=== PATIENT | female | born 1970 | race Caucasian/White ===

== ENCOUNTER 2016-11-25 01:26 | Inpatient (IN) | payer BC, OTHER ==
[~2016-11-25] VITALS: Ht 157.5 cm; Wt 90.7 kg
[2016-11-25] VITALS (7 sets, daily range): BP systolic 126–164; BP diastolic 70–96
[2016-11-25] MEDS ORDERED: HYDROXYZINE PAMOATE 25 MG CAPSULE PO PRN (02:45)
[2016-11-25] MEDS ORDERED: DIAZEPAM 5 MG TABLET PO PRN (02:45)
[2016-11-25] MEDS ORDERED: ACETAMINOPHEN 325 MG TABLET PO PRN (02:45)
[2016-11-25] MEDS ORDERED: MAGNESIUM HYDROXIDE 30 ML LIQUID UDC PO PRN (02:45)
[2016-11-25] MEDS ORDERED: ONDANSETRON ODT 4 MG TAB.RAPDIS SL PRN (02:45)
[2016-11-25] MEDS ORDERED: DIAZEPAM 10 MG TABLET PO PRN ×2 (02:45)
[2016-11-25] MEDS ORDERED: DICYCLOMINE HCL 20 MG TABLET PO PRN (02:45)
[2016-11-25] MEDS ORDERED: CLONIDINE HCL 0.1 MG TABLET PO PRN (02:45)
[2016-11-25] MEDS ORDERED: MAG HYDROX/AL HYDROX/SIMETH 30 ML LIQUID UDC PO PRN (02:45)
[2016-11-25] MEDS ORDERED: IBUPROFEN 400 MG TABLET PO PRN (02:45)
[2016-11-25] MEDS ORDERED: LOPERAMIDE HCL 2 MG CAPSULE PO PRN ×2 (02:45)
[2016-11-25] MEDS ORDERED: diphenhydrAMINE 50 MG CAPSULE PO PRN (02:45)
[2016-11-25] MEDS ORDERED: BUPRENORPHINE HCL 2 MG TAB.SUBL SL PRN (02:45)
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
[2016-11-25 03:44] LABS: BASOPHILS # (AUTO) 0.1 K/uL (0.0-8.0); BASOPHILS % (AUTO) 1.2 % (0.0-2.0); EOSINOPHILS % (AUTO) 0.7 % (0.0-7.0); HEMATOCRIT 44.1 % (31.2-41.9); HEMOGLOBIN 14.4 g/dL (10.9-14.3); LYMPHOCYTES # (AUTO) 1.7 K/uL (20.0-40.0); LYMPHOCYTES % (AUTO) 40.3 % (20.5-51.5); MEAN CORPUSCULAR HEMOGLOBIN 29.4 uug (24.7-32.8); MEAN CORPUSCULAR HGB CONC 33 g/dL (32.3-35.6); MEAN CORPUSCULAR VOLUME 89.6 fL (75.5-95.3); MONOCYTES # (AUTO) 0.4 K/uL (2.0-10.0); NEUTROPHILS % (AUTO) 48.8 % (38.5-71.5); PLATELET COUNT (AUTO) 257 K/uL (179-408); RED BLOOD CELL COUNT(AUTO) 4.92 MIL/uL (3.63-4.92); WHITE BLOOD COUNT (AUTO) 4.2 K/uL (3.8-11.8)
[2016-11-25 03:52] LABS: *URINE HCG, QUAL NEGATIVE (NEGATIVE)
[2016-11-25 04:00] LABS: ALANINE AMINOTRANSFERASE 48 U/L (14-59); ALBUMIN 4.3 g/dL (3.4-5.0); ALKALINE PHOSPHATASE 94 U/L (50-136); AMYLASE 25 U/L (25-115); ASPARTATE AMINOTRANSFERASE 40 U/L (15-37); BILIRUBIN,TOTAL 0.5 mg/dL (0.2-1.0); CARBON DIOXIDE 30 mmol/L (21-32); CHLORIDE 104 mmol/L (98-107); CREATININE 0.9 mg/dL (0.6-1.3); GFR 67 mL/min (>60); GLUCOSE 76 mg/dL (74-106); LIPASE 110 U/L (73-393); MAGNESIUM 2.1 mg/dL (1.8-2.4); SODIUM SERUM 141 mmol/L (136-145); TOTAL PROTEIN, SERUM 8.3 g/dL (6.4-8.2); UREA NITROGEN, BLOOD 17 mg/dL (7-18)
[2016-11-25 04:02] LABS: ETHANOL < 3 MG/DL (0-0)
[2016-11-25 04:03] LABS: *AMPHETAMINE, URINE NEGATIVE (NEGATIVE); *BARBITURATE, URINE NEGATIVE (NEGATIVE); *CANNABINOID, URINE POSITIVE (NEGATIVE); *COCCAINE, URINE NEGATIVE (NEGATIVE); *OPIATE, URINE POSITIVE (NEGATIVE); *PHENCYCLIDINE SCREEN,URINE NEGATIVE (NEGATIVE)
[2016-11-25 04:08] LABS: THYROID STIMULATING HORMONE 2.155 mIU/mL (0.358-3.740)
[2016-11-25 04:19] LABS: HIV-1 p24 ANTIGEN NON REACTIVE (NONREACTIVE); HIV-1/2 ANTIBODY NON REACTIVE (NONREACTIVE)
[2016-11-25] MEDS ORDERED: GABA300C PO (04:25)
[2016-11-25] MEDS ORDERED: CLIN-63 PO (04:35)
[2016-11-25] MEDS ORDERED: SUMA100T16 PO (04:35)
[2016-11-25] MEDS ORDERED: LEVO75TA7 PO (04:35)
[2016-11-25] MEDS ORDERED: NA P133E4 RC (04:37)
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
--- NOTE | 2016-11-25 07:34 | NUR ---
START OF SHIFT NOTE: Received report from operation shift supervisor nurse. Patient is a 46-year-old female, admitted 11-25-16 for Opioid and Benzodiazapine Dependence. Pt is currently on prn's only. Pt is awake, alert and oriented X4. Color good, skin warm and dry. Respirations even and unlabored. Resting in bed. Safety precautions observed. Call light within reach. Will continue to monitor.
[2016-11-25] MEDS ORDERED: MULTIVITAMINS,THERAPEUTIC TABLET PO SCH (09:00)
[2016-11-25] MEDS: MULTIVITAMINS,THERAPEUTIC TABLET PO SCH (09:45)
[2016-11-25] MEDS: METHOCARBAMOL 750 MG TABLET PO PRN (10:28)
--- NOTE | 2016-11-25 10:31 | NUR ---
VSS CIWA 17 COWS 11. Pt c/o severe anxiety and agitation along with body aches and "a migraine." Valium 10mg po prn Robaxin 750 mg po prn and Motrin 400 mg po prn administered.
[2016-11-25] MEDS ORDERED: ASPIRIN/ACETAMINOPHEN/CAFFEINE TABLET PO PRN (10:45)
[2016-11-25] MEDS ORDERED: BUPRENORPHINE HCL 2 MG TAB.SUBL SL ONE (10:45)
[2016-11-25] MEDS ORDERED: SUMATRIPTAN SUCCINATE 50 MG TABLET PO ONE (10:45)
--- NOTE | 2016-11-25 11:14 | NUR ---
Imitrex 50mg po prn given for migraine. Subutex 4mg X1 sl administered.
--- NOTE | 2016-11-25 11:15 | NUR ---
Pt states less anxious and agitated after Valium prn. Muscle aches and headache improved after Motrin and Robaxin prn.
[2016-11-25] MEDS: DIAZEPAM 10 MG TABLET PO SCH ×3 (12:15→21:17)
[2016-11-25] MEDS: BUPRENORPHINE HCL 2 MG TAB.SUBL SL SCH ×3 (12:15→21:18)
--- NOTE | 2016-11-25 12:15 | NUR ---
Pt states migraine gone after Imitrex prn
--- NOTE | 2016-11-25 13:00 | NUR ---
VSS COWS 7 CIWA 12. C/O muscle aches, anxiety and agitation.
[2016-11-25] MEDS: GABAPENTIN 300 MG CAPSULE PO SCH ×2 (14:57→21:17)
[2016-11-25] MEDS ORDERED: FLEET ENEMA 133 ML BOTTLE RC PRN (16:15)
--- NOTE | 2016-11-25 18:37 | NUR ---
END OF SHIFT NOTES: Report given to doctor of veterinary medicine nurse. Patient is a 46-year-old female, admitted 11-25-16 for Opioid and Benzodiazapine Dependence. Pt placed on a 5 day Valium and 5 day Subutex taper. Tolerating well. Pt is awake, alert and oriented X4. Color good, skin warm and dry. Respirations even and unlabored. Vital signs have remained stable throughout shift . Last CIWA 10 COWS 7 @ 1700. Imitrex 50mg po prn given for migraine. Valium 10mg po prn Robaxin 750 mg po prn and Motrin 400 mg po prn administered @ 1030. Imitrex 50mg po prn given for migraine and Subutex 4mg X1 sl administered @ 1115. Resting in bed. Safety precautions observed. Call light within reach.
--- NOTE | 2016-11-25 19:05 | NUR ---
Start of Shift Patient Received. Patient is in group activities participating in group meeting. Patient is a 46-year-old female, admitted for Opioid and Benzodiazepine Dependence, admitted under the care of Dr. Fowler. Patient was seen and examined by MD with new orders to start on 5 Day Subutex and 5 day Valium tapers which start at 1300. Patient verbalizes no known allergies, wishes to be DNR, following a regular diet, skin is intact, and placed on fall precautions. Patient reports past medical history of Major depressive disorder, Anxiety disorder, unspecified, Fibromyalgia, Complex regional pain syndrome, Chronic low back pain with sciatica, Osteoarthritis, Migraine headache, Hypothyroidism, History of suicide attempt. Patient verbalizes no suicidal ideations. VTE Score of 3 and is compliant with SCD pumps. At 1600 patient is noted with a COWS of 7 and CIWA of 10. Patient is compliant with plan of care, is active in participating in group activities, and meetings. All needs attended to promptly. Will continue plan of care as ordered.
[2016-11-25] MEDS: NAPROXEN 500 MG TABLET PO SCH (21:17)
--- NOTE | 2016-11-25 21:20 | NUR ---
PRN Medication Administration Patient noted with increased agitation and anxiety. Patient verbalized "My laundry was washed and they washed a shirt that should not have been washed." Patients vitals rendered and noted as 164/96 and pulse of 90. Patient given PRN Clonidine with routine medications and patient able to tolerate well. Will continue to monitor for effectiveness of medication
--- NOTE | 2016-11-25 22:30 | NUR ---
PRN Medication Reassessment Patients vitals rendered and noted as 126/79 and pulse of 74. PRN Clonidine 0.1mg noted to be effective. Will continue to monitor.
[2016-11-26] VITALS (8 sets, daily range): BP systolic 97–125; BP diastolic 53–73
[2016-11-26] MEDS: TRAZODONE 100 MG TABLET PO PRN ×2 (01:37→20:49)
--- NOTE | 2016-11-26 01:40 | NUR ---
PRN Medication Administration Patient noted awake and verbalizing increased anxiety and inability of falling back asleep. Patient states "I was awakened for vitals and I cant fall back to sleep. My anxiety is really high." PRN Valium 5mg and Trazodone administered. CIWA noted 6. Will continue to monitor for effectiveness of medication.
--- NOTE | 2016-11-26 02:30 | NUR ---
PRN Medication Reassessment Patient is in bed sleeping. But easily arousable to verbal stimuli. Breathing even and non labored. No signs of pain or discomfort noted. Patient shows reduced signs and symptoms of withdrawal. PRN Valium noted to be effective. CIWA noted 1 and COWS noted 1. Patient was able to fall back asleep with no complications. Will continue to monitor.
[2016-11-26] MEDS: LEVOTHYROXINE SODIUM 75 MCG TABLET PO SCH (06:45)
--- NOTE | 2016-11-26 07:28 | NUR ---
START OF SHIFT NOTE: Received report from in room dining server nurse. Patient is a 46-year-old female, admitted 11-25-16 for Opioid and Benzodiazapine Dependence. Pt is on a 5 day Valium and 5 day Subutex taper. Tolerating well. Pt is awake, alert and oriented X4. Color good, skin warm and dry. Respirations even and unlabored. Resting in bed. Safety precautions observed. Call light within reach. Will continue to monitor.
--- NOTE | 2016-11-26 07:29 | NUR ---
START OF SHIFT NOTE: Received report from overnight cashier nurse. Patient is a 46-year-old female, admitted 11-25-16 for Opioid and Benzodiazapine Dependence. Pt is on a 5 day Valium and 5 day Subutex taper. Tolerating well. Pt is awake, alert and oriented X4. Color good, skin warm and dry. Respirations even and unlabored. Resting in bed. Safety precautions observed. Call light within reach. Will continue to monitor.
[2016-11-26] MEDS: NAPROXEN 500 MG TABLET PO SCH ×2 (08:19→20:49)
[2016-11-26] MEDS: MULTIVITAMINS,THERAPEUTIC TABLET PO SCH (08:19)
[2016-11-26] MEDS: FAMOTIDINE 20 MG TABLET PO SCH (08:19)
[2016-11-26] MEDS: DIAZEPAM 10 MG TABLET PO SCH ×3 (08:19→20:49)
[2016-11-26] MEDS: GABAPENTIN 300 MG CAPSULE PO SCH ×2 (08:20→14:39)
[2016-11-26] MEDS: LIDOCAINE 5% PATCH TD SCH (08:20)
[2016-11-26] MEDS: BUPRENORPHINE HCL 2 MG TAB.SUBL SL SCH ×3 (08:20→20:49)
[2016-11-26] MEDS ORDERED: TUBERCULIN,PURIF.PROT.DERIV. 5 TU/0.1 ML TEST ID ONE (09:00)
--- NOTE | 2016-11-26 10:02 | NUR ---
VSS COWS 4 CIWA 4. Pt with muscle aches, anxiety and headache.
--- NOTE | 2016-11-26 12:20 | NUR ---
Toradol 30mg IM prn given for chronic back pain
[2016-11-26] MEDS: DOCUSATE SODIUM 250 MG CAPSULE PO SCH (12:38)
[2016-11-26] MEDS: KETOROLAC TROMETHAMINE 30 MG INJ IM PRN (12:42)
--- NOTE | 2016-11-26 12:47 | NUR ---
Fleets enema prn and Vistaril 50mg po prn given for anxiety.
--- NOTE | 2016-11-26 13:43 | NUR ---
Pt states pain improved after Toradol 30mg IM prn and anxiety has lessened after Vistaril 50mg po prn. Also had ggod results from Fleets enema prn.
--- NOTE | 2016-11-26 14:41 | NUR ---
VSS COWS 4 CIWA 4 c/o muscle aches and anxiety
--- NOTE | 2016-11-26 18:31 | NUR ---
END OF SHIFT NOTES: Report given to vertical boring mill operator nurse. Patient is a 46-year-old female, admitted 11-25-16 for Opioid and Benzodiazapine Dependence. Pt placed on a 5 day Valium and 5 day Subutex taper. Tolerating well. Pt is awake, alert and oriented X4. Color good, skin warm and dry. Respirations even and unlabored. Vital signs have remained stable throughout shift . Last CIWA 4 COWS 4 @ 1500. Toradol 30mg IM prn given for chronic back pain @ 1220 and Fleets enema prn and Vistaril 50mg po prn given for anxiety @ 1250. Resting in bed. Safety precautions observed. Call light within reach.
--- NOTE | 2016-11-26 19:05 | NUR ---
Start of Shift Patient Received. Patient is in group activities participating in group meeting. Patient is a 46-year-old female, admitted for Opioid and Benzodiazepine Dependence, admitted under the care of Dr. Fowler. Patient is on a 5 Day Subutex and 5 day Valium tapers. Patient verbalizes no known allergies, wishes to be DNR, following a regular diet, skin is intact, and placed on fall precautions. Patient reports past medical history of Major depressive disorder, Anxiety disorder, unspecified, Fibromyalgia, Complex regional pain syndrome, Chronic low back pain with sciatica, Osteoarthritis, Migraine headache, Hypothyroidism, History of suicide attempt. Patient verbalizes no suicidal ideations. VTE Score of 3 and is compliant with SCD pumps. Patient was given PRN Toradol, Vistaril, and Enema. At 1600 patient is noted with a COWS of 4 and CIWA of 4. Patient is compliant with plan of care, is active in participating in group activities, and meetings. All needs attended to promptly. Will continue plan of care as ordered.
--- NOTE | 2016-11-26 20:50 | NUR ---
PRN Medication Administration Patient is verbalizing inability of falling asleep. PRN Trazodone administered with routine medications. All needs attended to promptly. Will continue to monitor for effectiveness.
[2016-11-26] MEDS ORDERED: GABAPENTIN 300 MG CAPSULE PO SCH (21:00)
[2016-11-27 00:47] VITALS: BP 95/58
[2016-11-27 04:09] VITALS: BP 103/64
[2016-11-27] MEDS: LEVOTHYROXINE SODIUM 75 MCG TABLET PO SCH (06:45)
--- NOTE | 2016-11-27 07:03 | NUR ---
End of Shift Patient is in bed sleeping. Breathing even and non labored. No signs of pain or discomfort noted. Patient is a 46-year-old female, admitted for Opioid and Benzodiazapine Dependence, admitted under the care of Dr. Fowler. Patient is currently receiving a 5 day Valium and 5 Day Subutex taper. Patient verbalizes no known allergies, wishes to be DNR, regular diet, skin is intact, and placed on fall precautions. Patient reports past medical history of Major depressive disorder, Anxiety disorder, unspecified, Fibromyalgia, Complex regional pain syndrome, Chronic low back pain with sciatica, Osteoarthritis, Migraine headache, Hypothyroidism, History of suicide attempt. PRN Trazodone administered and noted to be effective. Patient slept 7 hours. Patient placed on SCD pumps due to a VTE score of 3. All needs attended to promptly. Will endorse to continue plan of care as ordered.
[2016-11-27 08:00] VITALS: BP 114/78
--- NOTE | 2016-11-27 08:00 | NUR ---
START OF SHIFT: RECEIVED PT A/O X 4. SHE C/O MUSCLE ACHES 5/10 ON PAIN SCALE , ANXIETY AND STATES SHE FEELS "SHAKY". VALIUM/SUBUTEX TAPER IN PROGRESS TO MANAGE S/S OF W/D. COWS 4 CIWA 2. SHE ALSO C/O CONSTIPATION X 1 DAY. SCHEDULED COLACE GIVEN AND PRN MIRALAX. ENCOURAGED INCREASED FLUIDS. SHE STATES SHE IS ATTENDING GROUPS. WILL CONTINUE TO MONITOR AND PROVIDE SAFE AND SUPPORTIVE ENVIRONMENT.
[2016-11-27] MEDS: DIAZEPAM 5 MG TABLET PO SCH ×4 (08:15→20:42)
[2016-11-27] MEDS: DOCUSATE SODIUM 250 MG CAPSULE PO SCH (08:15)
[2016-11-27] MEDS: MULTIVITAMINS,THERAPEUTIC TABLET PO SCH (08:15)
[2016-11-27] MEDS: LIDOCAINE 5% PATCH TD SCH (08:16)
[2016-11-27] MEDS: FAMOTIDINE 20 MG TABLET PO SCH (08:16)
[2016-11-27] MEDS: GABAPENTIN 300 MG CAPSULE PO SCH ×3 (08:16→20:40)
[2016-11-27] MEDS: NAPROXEN 500 MG TABLET PO SCH ×2 (08:16→20:42)
[2016-11-27] MEDS: MIRALAX 17 GM POWD.PACK PO PRN (08:17)
[2016-11-27] MEDS ORDERED: BUPRENORPHINE HCL 2 MG TAB.SUBL SL SCH (09:00)
--- NOTE | 2016-11-27 10:27 | NUR ---
Therapist encouraged client to attend group.
[2016-11-27 12:00] VITALS: BP 111/58
[2016-11-27] MEDS: METHYL SALICYLATE/MENTHOL CREAM 28 GM TUBE TOP PRN (12:02)
[2016-11-27] MEDS: KETOROLAC TROMETHAMINE 30 MG INJ IM PRN (12:04)
--- NOTE | 2016-11-27 12:20 | NUR ---
PRN BENGAY AND PRN TORADOL IM ADMINISTERED FOR REPORTED PAIN 6/10 IN FEET,BACK AND LEGS. WILL MONITOR EFFECTIVENESS OF PRN MEDS.
[2016-11-27] MEDS ORDERED: ACETAMINOPHEN 325 MG TABLET PO PRN (12:45)
--- NOTE | 2016-11-27 13:00 | NUR ---
PT STATES PAIN IS 2/10 AND THE PRNS WERE EFFECTIVE. WILL CONTINUE TO MONITOR.
[2016-11-27 16:00] VITALS: BP 129/71
--- NOTE | 2016-11-27 16:15 | NUR ---
LATE ADMINISTRATION FOR 1500 MEDS. PT WAS SLEEPING AND THEN IN AFTERNOON THERAPY GROUP.
[2016-11-27] MEDS: BACLOFEN 10 MG TABLET PO SCH ×2 (16:23→20:42)
[2016-11-27] MEDS: BUPRENORPHINE HCL 2 MG TAB.SUBL SL SCH ×2 (16:24→20:43)
--- NOTE | 2016-11-27 18:28 | NUR ---
END OF SHIFT: PT CONTINUES ON VALIUM/SUBUTEX TAPER. LAST COWS 3 CIWA 1.SHE REPORTED SOME ANXIETY ,CONSTIPATION AND GENERALIZED BODY ACHES THIS AM. PRN MIRALAX GIVEN AND EFFECTIVE. SHE HAD 1 BM. SHE STATED THE DETOX MEDS WERE EFFECTIVE. LATER SHE C/O PAIN TO BACK ,FEET AND LEGS. PRN TORADOL AND PRN BENGAY GIVEN AND EFFECTIVE. SHE ATTENDED GROUPS AND INTERACTED WITH PEERS. SHE WAS COMPLIANT WITH INCREASED FLUIDS. SHE IS COMPLIANT WITH TREATMENT PLAN. [facility]
[2016-11-27 20:00] VITALS: BP 115/74
--- NOTE | 2016-11-27 20:37 | NUR ---
START OF SHIFT NOTE Pt is a 46 y/o female admitted for Hydrocodone, Xanax, Ambein, and Ms Contin dependence and use. Pt has NKA but reported a PMH of hypothyroidism, fibromyalgia, complex regional pain syndrome, chronic fatigue syndrome, arthritis, anxiety, pinched nerves (L5 -S1), surgery of the right foot, and scoliosis. Per day shift nurse pt was placed on a 5 day Valium and Subutex taper and is tolerating medication well, with no signs of s/e or a/r reported. Per day shift nurse pt received Toradol IM PRN, Bengay, and Miralax (effective). Last COW:3 and CIWA: 1(1600). At this time pt is in her room watching television. Pt stated " I'm doing fine. I just have this migraine. Can I have some Imitrex with my medication?" Pt is encouraged to notify staff of any changes in condition or of any further concerns. Pt verbalized an understanding. All safety measures in place. Will continue to monitor.
[2016-11-27] MEDS: ACETAMINOPHEN 325 MG TABLET PO SCH (20:41)
[2016-11-27] MEDS: CLONIDINE HCL 0.1 MG TABLET PO SCH (20:42)
[2016-11-27] MEDS: SUMATRIPTAN SUCCINATE 50 MG TABLET PO PRN (20:43)
--- NOTE | 2016-11-27 20:43 | NUR ---
IMITREX PRN ADMINISTRATION Pt stated " I'm having a migraine. About a 4/10 right now. Can I have some Imitrex?" Imitrex 50 mg PO PRN was given. Pt was encouraged to notify staff of any changes in condition or of any further concerns. Pt verbalized an understanding. All safety measures in place. Will monitor effectiveness.
--- NOTE | 2016-11-27 21:43 | NUR ---
IMITREX PRN REASSESSMENT Pt stated " My migraine is gone." PRN effective. Pt was encouraged to notify staff of any changes in condition or of any concerns. Pt verbalized an understanding. All safety measures in place. Will continue to monitor.
--- NOTE | 2016-11-28 00:13 | NUR ---
CIWA, COW, AND VITALS REFUSED Pt refused to be assessed and have vitals taken at this time. Pt was encouraged x 3 with risks and benefits explained, but the pt still refused. All safety measures in place. Will continue to monitor. Addendum: 11/28/16 at 0045 by FELICIANO RODRIGUEZ LVN Amended: Links added.
[2016-11-28 03:05] LABS: HEPATITIS B CORE AB, IgM Negative (Negative); HEPATITIS B SURFACE AG Negative (Negative)
--- NOTE | 2016-11-28 04:00 | NUR ---
COW, CIWA, AND VITALS REFUSED Pt refused to be assessed and have vitals taken at this time. Pt was encouraged x 3 with risks and benefits explained, but the pt still refused. All safety measures in place. Will continue to monitor. Addendum: 11/28/16 at 0639 by FELICIANO RODRIGUEZ LVN Amended: Links added.
--- NOTE | 2016-11-28 07:10 | NUR ---
END OF SHIFT NOTE Pt is a 46 y/o female admitted for Hydrocodone, Xanax, Ambien, and Ms Contin dependence and use. Pt has NKA but reported a PMH of hypothyroidism, fibromyalgia, complex regional pain syndrome, chronic fatigue syndrome, arthritis, anxiety, pinched nerves (L5 -S1), surgery of the right foot, and scoliosis. Pt continues on a 5 day Valium and Subutex taper and is tolerating medication well, with no signs of s/e or a/r reported. Pt received Imitrex 50 mg PO PRN during the shift. Last COW:3 and CIWA: 4(1999). Pt slept for a total of 8 hours. All safety measures in place. Endorsed to the oncoming nurse.
[2016-11-28] MEDS: LEVOTHYROXINE SODIUM 75 MCG TABLET PO SCH (07:21)
[2016-11-28 08:00] VITALS: BP 102/68
--- NOTE | 2016-11-28 08:05 | NUR ---
START OF SHIFT: RECEIVED PT A/O X 4. SHE PRESENTS WITH ANXIOUS MOOD AND CONGRUENT AFFECT. VALIUM/SUBUTEX TAPER IN PROGRESS TO MANAGE S/S OF W/D. COWS 3 CIWA 2. SHE REPORTS ANXIETY AND SOME ACHING TO LEGS AND BACK 4/10 ON PAIN SCALE. BACLOFEN,TYLENOL ,NAPROSYN AND LIDOCAINE PATCH GIVEN SCHEDULED PER MD. SHE REPORTS SHE IS ATTENDING GROUPS AND ACTIVITIES. SHE STATES SHE SLEPT OK BUT WOKE UP IN THE MIDDLE OF THE NIGHT AND IT WAS DIFFICULT TO GET BACK TO SLEEP. ENCOURAGED INCREASED FLUIDS TO ASSIST IN FACILITATING DETOX PROCESS. WILL CONTINUE TO PROVIDE SAFE AND SUPPORTIVE ENVIRONMENT.
[2016-11-28] MEDS: BACLOFEN 10 MG TABLET PO SCH ×3 (09:15→21:21)
[2016-11-28] MEDS: GABAPENTIN 300 MG CAPSULE PO SCH ×2 (09:16→14:57)
[2016-11-28] MEDS: DOCUSATE SODIUM 250 MG CAPSULE PO SCH (09:16)
[2016-11-28] MEDS: CLONIDINE HCL 0.1 MG TABLET PO SCH (09:16)
[2016-11-28] MEDS: ACETAMINOPHEN 325 MG TABLET PO SCH ×3 (09:16→21:22)
[2016-11-28] MEDS: NAPROXEN 500 MG TABLET PO SCH ×2 (09:17→21:20)
[2016-11-28] MEDS: DIAZEPAM 5 MG TABLET PO SCH ×3 (09:17→21:19)
[2016-11-28] MEDS: MULTIVITAMINS,THERAPEUTIC TABLET PO SCH (09:17)
[2016-11-28] MEDS: FAMOTIDINE 20 MG TABLET PO SCH (09:17)
[2016-11-28] MEDS: LIDOCAINE 5% PATCH TD SCH (09:18)
[2016-11-28] MEDS: BUPRENORPHINE HCL 2 MG TAB.SUBL SL SCH ×3 (09:18→21:22)
[2016-11-28] MEDS: SUMATRIPTAN SUCCINATE 50 MG TABLET PO PRN (09:59)
[2016-11-28 12:00] VITALS: BP 102/58
[2016-11-28] MEDS: METHYL SALICYLATE/MENTHOL CREAM 28 GM TUBE TOP PRN (12:46)
--- NOTE | 2016-11-28 12:54 | NUR ---
PRN VICTOR MANUEL-TORRES GIVEN TOPICALLY FOR REPORTED ACHEY LEGS. WILL MONITOR EFFECTIVENESS.
--- NOTE | 2016-11-28 13:30 | NUR ---
[facility] WAS EFFECTIVE.
[2016-11-28] MEDS: KETOROLAC TROMETHAMINE 30 MG INJ IM PRN (15:00)
--- NOTE | 2016-11-28 15:05 | NUR ---
PRN TORADOL IM GIVEN FOR REPORTED GENERALIZED PAIN 6/10 TO BACK AND LEGS. WILL MONITOR EFFECTIVENESS OF PRN.
--- NOTE | 2016-11-28 15:40 | NUR ---
PT STATES THE TORADOL WAS EFFECTIVE. PAIN 2/10 ON PAIN SCALE.
[2016-11-28 16:00] VITALS: BP 110/56
[2016-11-28] MEDS ORDERED: BISACODYL 5 MG TABLET.DR PO PRN (16:00)
[2016-11-28] MEDS ORDERED: BISACODYL 10 MG SUPP.RECT RC PRN (16:00)
--- NOTE | 2016-11-28 18:38 | NUR ---
END OF SHIFT: PT CONTINUES ON VALIUM/SUBUTEX TAPER. LAST COWS 2 CIWA 1.SHE REPORTED SOME ANXIETY , AND BODY ACHES SCHEDULED AM MEDS GIVEN ORDERED. SHE STATED THE DETOX MEDS WERE EFFECTIVE.SHE COMPLAINED THAT SHE FELT A MIGRAINE COMING ON IN [place] PART OF SHIFT. PRN IMITREX GIVEN AND EFFECTIVE. LATER SHE AN ACHING BACK AND LEGS. PRN TORADOL AND PRN BENGAY GIVEN AND EFFECTIVE. SHE ATTENDED GROUPS AND INTERACTED WITH PEERS. SHE IS COMPLIANT WITH TREATMENT PLAN. [facility]
[2016-11-28 20:00] VITALS: BP 112/61
--- NOTE | 2016-11-28 20:30 | NUR ---
START OF SHIFT NOTE Pt is a 46 y/o female admitted for Hydrocodone, Xanax, Ambien, and Ms Contin dependence and use. Pt has NKA but reported a PMH of hypothyroidism, fibromyalgia, complex regional pain syndrome, chronic fatigue syndrome, arthritis, anxiety, pinched nerves (L5 -S1), surgery of the right foot, and scoliosis. Per day shift nurse pt continues on a 5 day Valium and Subutex taper and is tolerating medication well, with no signs of s/e or a/r reported. Per day shift nurse pt received Toradol IM PRN, Bengay, and Imitrex PRNS during the day shift . Last COW:2 and CIWA: 1 (1600). At this time pt is in her room watching television. Pt stated " I'm doing fine. I'm ready for medication when you are." Pt denies any pain/discomfort at this time. Pt is encouraged to notify staff of any changes in condition or of any further concerns. Pt verbalized an understanding. All safety measures in place. Will continue to monitor.
[2016-11-28] MEDS ORDERED: GABAPENTIN 300 MG CAPSULE PO SCH (21:00)
[2016-11-28] MEDS: DICYCLOMINE HCL 20 MG TABLET PO SCH (21:22)
[2016-11-28] MEDS: PROPRANOLOL HCL 20 MG TABLET PO SCH (21:25)
--- NOTE | 2016-11-29 | NUR ---
TERRENCE, CIWA, AND VITALS REFUSED Pt refused to be assessed and have vitals taken at this time. Pt was encouraged x 3 with risks and benefits explained, but pt still declined. All safety measures in place. Will continue to monitor. Addendum: 11/29/16 at 0620 by FELICIANO RODRIGUEZ LVN Amended: Links added.
[2016-11-29 04:00] VITALS: BP 99/53
--- NOTE | 2016-11-29 04:00 | NUR ---
COW, CIWA, AND VITALS REFUSED Pt refused to be assessed and have vitals taken at this time. Pt was encouraged x 3 with risks and benefits explained, but pt still declined. All safety measures in place. Will continue to monitor. Addendum: 11/29/16 at 0624 by FELICIANO RODRIGUEZ LVN Amended: Links added. Addendum: 11/29/16 at 0627 by FELICIANO RODRIGUEZ LVN INCORRECT CLIENT
--- NOTE | 2016-11-29 07:00 | NUR ---
END OF SHIFT NOTE Pt is a 46 y/o female admitted for Hydrocodone, Xanax, Ambien, and Ms Contin dependence and use. Pt has NKA but reported a PMH of hypothyroidism, fibromyalgia, complex regional pain syndrome, chronic fatigue syndrome, arthritis, anxiety, pinched nerves (L5 -S1), surgery of the right foot, and scoliosis. Pt continues on a 5 day Valium and Subutex taper and is tolerating medication well, with no signs of s/e or a/r reported. Pt didn't receive any PRNS during the shift. Last COW:0 and CIWA:0 (0400). Pt slept for a total of 9 hours. All safety measures in place. Endorsed to the oncoming nurse.
[2016-11-29] MEDS: LEVOTHYROXINE SODIUM 75 MCG TABLET PO SCH (07:17)
[2016-11-29 08:00] VITALS: BP 115/83
--- NOTE | 2016-11-29 08:02 | NUR ---
START OF SHIFT: RECEIVED PT A/O X 4. SHE C/O LEG AND BACK PAIN 6/10 AND MILD ANXIETY. SHE STATES SHE IS ANXIOUS BECAUSE SHE DOES NOT KNOW WHERE SHE IS GOING FROM HERE. REDIRECTED PT TO GERIATRIC PERSONAL CARE AIDE. VALIUM/SUBUTEX TAPER IN PROGRESS. COWS 3 CIWA 1. SCHEDULED PAIN MEDS AND DETOX MEDS ADMINISTERED ORDERED. PT REPORTS SHE IS ATTENDING GROUPS AND ACTIVITIES AND EXPRESSED ENTHUSIASM TOWARD RECOVERY. WILL CONTINUE TO PROVIDE SAFE AND SUPPORTIVE ENVIRONMENT.
[2016-11-29] MEDS: MULTIVITAMINS,THERAPEUTIC TABLET PO SCH (09:16)
[2016-11-29] MEDS: NAPROXEN 500 MG TABLET PO SCH ×2 (09:17→21:00)
[2016-11-29] MEDS: DOCUSATE SODIUM 250 MG CAPSULE PO SCH (09:17)
[2016-11-29] MEDS: DIAZEPAM 5 MG TABLET PO SCH ×2 (09:17→21:00)
[2016-11-29] MEDS: DICYCLOMINE HCL 20 MG TABLET PO SCH ×3 (09:17→20:59)
[2016-11-29] MEDS: FAMOTIDINE 20 MG TABLET PO SCH (09:18)
[2016-11-29] MEDS: ACETAMINOPHEN 325 MG TABLET PO SCH ×3 (09:18→20:59)
[2016-11-29] MEDS: GABAPENTIN 300 MG CAPSULE PO SCH ×3 (09:18→21:02)
[2016-11-29] MEDS: BACLOFEN 10 MG TABLET PO SCH ×3 (09:18→21:00)
[2016-11-29] MEDS: BUPRENORPHINE HCL 2 MG TAB.SUBL SL SCH ×2 (09:19→21:04)
[2016-11-29] MEDS: LIDOCAINE 5% PATCH TD SCH (09:19)
[2016-11-29] MEDS: PROPRANOLOL HCL 20 MG TABLET PO SCH ×3 (09:27→21:03)
[2016-11-29] MEDS: SUMATRIPTAN SUCCINATE 50 MG TABLET PO PRN ×2 (10:04→18:43)
--- NOTE | 2016-11-29 10:08 | NUR ---
PT REPORTS SHE FEELS A MIGRAINE COMING ON AND REQUESTS IMITREX.PRN IMITREX GIVEN. SHE STATES SHE CANT RATE THE PAIN ON SCALE BECAUSE IT HASN'T STARTED YET.
--- NOTE | 2016-11-29 11:00 | NUR ---
PT STATES IMITREX WAS EFFECTIVE.
[2016-11-29 12:00] VITALS: BP 123/84
[2016-11-29] MEDS: KETOROLAC TROMETHAMINE 30 MG INJ IM PRN ×2 (13:34→23:01)
--- NOTE | 2016-11-29 13:40 | NUR ---
PT REPORTS BACK AND LEG PAIN 7/10 ON PAIN SCALE. PRN TORADOL IM GIVEN ORDERED. WILL MONITOR EFFECTIVENESS.
--- NOTE | 2016-11-29 14:08 | NUR ---
PT STATES THE TORADOL HELPED. PAIN 11/06
[2016-11-29 16:00] VITALS: BP 143/74
--- NOTE | 2016-11-29 18:35 | NUR ---
END OF SHIFT: PT CONTINUES ON VALIUM/SUBUTEX TAPER. LAST COWS 1 CIWA 0.SHE REPORTED SOME PAIN IN HER BACK AND LEGS THIS AM SCHEDULED AM PAIN MEDS GIVEN ORDERED. SHE STATES HER S/S OF W/D HAVE LESSENED AND SHE FEELS BETTER EVERYDAY.SHE STATED THE DETOX MEDS WERE EFFECTIVE.IMITREX PRN GIVEN AND EFFECTIVE FOR POTENTIAL MIGRAINE. LATER TORADOL PRN GIVEN AND EFFECTIVE. SHE ATTENDED GROUPS AND INTERACTED WITH PEERS. SHE IS C/O A MIGRAINE STARTING AT END OF SHIFT. WILL ADMINISTER IMITREX PRN PER PT REQUEST.SHE IS COMPLIANT WITH MEDS. WILL PASS SHIFT REPORT TO [facility] NIGHT NURSE.
[2016-11-29 20:00] VITALS: BP 132/82
--- NOTE | 2016-11-29 20:30 | NUR ---
START OF SHIFT NOTE Pt is a 46 y/o female admitted for Hydrocodone, Xanax, Ambien, and Ms Contin dependence and use. Pt has NKA but reported a PMH of hypothyroidism, fibromyalgia, complex regional pain syndrome, chronic fatigue syndrome, arthritis, anxiety, pinched nerves (L5 -S1), surgery of the right foot, and scoliosis. Per day shift nurse pt continues on a 5 day Valium and Subutex taper and is tolerating medication well, with no signs of s/e or a/r reported. Per day shift nurse pt received Toradol IM PRN, and Imitrex x 2 PRNS during the day shift . Last COW:1 and CIWA: 0 (1600). At this time pt is walking the hallways. Pt stated " I'm having some hip pain, but I'll wait for medication pass. Can I have some Miralax with my medication?" Pt is encouraged to notify staff of any changes in condition or of any further concerns. Pt verbalized an understanding. Will continue to monitor.
[2016-11-29] MEDS: MIRALAX 17 GM POWD.PACK PO PRN (20:58)
--- NOTE | 2016-11-29 20:58 | NUR ---
MIRALAX PRN ADMINISTRATION Pt stated " I'm not able to go to the bathroom. Can have some Miralax or something?" Miralax 17 gm given. Pt was encouraged to notify staff of any changes in condition or of any concerns and to increase fluids. Pt verbalized an understanding. All safety measures in place. Will monitor for effectiveness.
--- NOTE | 2016-11-29 21:58 | NUR ---
MIRALAX PRN REASSESSMENT Pt stated " I still haven't gone, but I've been drinking water and walking around so I think I'll go by the morning." PRN not effective at this time. Pt encouraged to notify staff of any changes in condition or of any further concerns. Pt verbalized an understanding. All safety measures in place. Will continue to monitor.
[2016-11-29] MEDS: TRAZODONE 100 MG TABLET PO PRN (23:02)
--- NOTE | 2016-11-29 23:02 | NUR ---
TRAZODONE AND TORADOL PRN ADMINISTRATION Pt stated " Can I have another shot of Toradol? My hip pain isn't going away with the medication you gave me. Can I also have something to help me sleep?" Toradol 30 mg IM PRN and Trazodone 100 mg PO PRN was given. Pt was encouraged to notify staff of any changes in condition or of any concerns. Pt verbalized an understanding. All safety measures in place. Will monitor for effectiveness.
[2016-11-30] VITALS: BP 118/76
--- NOTE | 2016-11-30 | NUR ---
COW, CIWA, AND VITALS REFUSED Pt refused to be assessed and have vitals taken at this time. Pt was encouraged x 3 with risks and benefits explained, but the pt still declined. All safety measures in place. Will continue to monitor. Addendum: 11/30/16 at 0110 by FELICIANO RODRIGUEZ LVN Amended: Links added.
--- NOTE | 2016-11-30 00:02 | NUR ---
TORADOL AND TRAZODONE PRN REASSESSMENT Pt stated " The Toradol definitely helped. My hip pain is barely a 2, and I'm starting to feel loopy so the Trazodone is working too." PRNS effective. All safety measures in place. Will continue to monitor.
--- NOTE | 2016-11-30 04:00 | NUR ---
COW, CIWA, AND VITALS REFUSED Pt refused to be assessed and have vitals taken at this time. Pt was encouraged x 3 with risks and benefits explained, but the pt still declined. All safety measures in place. Will continue to monitor. Addendum: 11/30/16 at 0535 by FELICIANO RODRIGUEZ LVN Amended: Links added.
--- NOTE | 2016-11-30 07:29 | NUR ---
END OF SHIFT NOTE Pt is a 46 y/o female admitted for Hydrocodone, Xanax, Ambien, and Ms Contin dependence and use. Pt has NKA but reported a PMH of hypothyroidism, fibromyalgia, complex regional pain syndrome, chronic fatigue syndrome, arthritis, anxiety, pinched nerves (L5 -S1), surgery of the right foot, and scoliosis. Pt continues on a 5 day Valium and Subutex taper and is tolerating medication well, with no signs of s/e or a/r reported. Pt didn't received Toradol 30 mg IM PRN, Trazodone 100 mg PO PRN, Miralax 17 gm PRN(endorsed to the day shift to follow up). Last COW:12 and CIWA:6 (1999). Pt slept for a total of 6 hours. All safety measures in place. Endorsed to the oncoming nurse.
--- NOTE | 2016-11-30 07:30 | NUR ---
start of shift note: received pt from rn shift mgr nurse, pt is in stable condition no s/s of pain or discomfort. pt is admitted to [facility] for opiate/benzo withdrawal/dependence. pt with hx of chronic pain. will continue to monitor pt for any changes and continue to monitor pt for A/R to taper medications.
[2016-11-30] MEDS: LEVOTHYROXINE SODIUM 75 MCG TABLET PO SCH (07:31)
[2016-11-30] MEDS: ACETAMINOPHEN 325 MG TABLET PO SCH ×3 (08:49→22:16)
[2016-11-30] MEDS: BACLOFEN 10 MG TABLET PO SCH ×3 (08:49→22:16)
[2016-11-30] MEDS: DICYCLOMINE HCL 20 MG TABLET PO SCH ×3 (08:49→22:16)
[2016-11-30] MEDS: NAPROXEN 500 MG TABLET PO SCH ×2 (08:49→22:16)
[2016-11-30] MEDS: DOCUSATE SODIUM 250 MG CAPSULE PO SCH (08:49)
[2016-11-30] MEDS: FAMOTIDINE 20 MG TABLET PO SCH (08:49)
[2016-11-30] MEDS: MULTIVITAMINS,THERAPEUTIC TABLET PO SCH (08:50)
[2016-11-30] MEDS: GABAPENTIN 300 MG CAPSULE PO SCH ×3 (08:50→22:16)
[2016-11-30] MEDS: LIDOCAINE 5% PATCH TD SCH (08:54)
[2016-11-30] MEDS ORDERED: BUPRENORPHINE HCL 2 MG TAB.SUBL SL SCH (09:00)
[2016-11-30 09:30] VITALS: BP 121/80
[2016-11-30] MEDS: PROPRANOLOL HCL 20 MG TABLET PO SCH ×3 (10:02→22:15)
[2016-11-30] MEDS: KETOROLAC TROMETHAMINE 30 MG INJ IM PRN (12:43)
--- NOTE | 2016-11-30 12:48 | NUR ---
PRN medication: pt with complaints of back and leg pain, pain scale 8/10. toradol shot was administered. will reassess pt if medication was effective
[2016-11-30 13:00] VITALS: BP 100/59
--- NOTE | 2016-11-30 13:30 | NUR ---
prn reassessment: pt states toradol was effective pt was able to join and activities pain level 3/10
[2016-11-30] MEDS ORDERED: Gabapentin PO (15:18)
[2016-11-30] MEDS ORDERED: Acetaminophen PO (15:18)
[2016-11-30] MEDS ORDERED: Famotidine PO (15:18)
[2016-11-30] MEDS ORDERED: Trazodone Hcl PO (15:18)
[2016-11-30] MEDS ORDERED: HYDR-3895 PO (15:18)
[2016-11-30] MEDS ORDERED: DICY20TA28 PO (15:18)
[2016-11-30] MEDS ORDERED: LIDO30AD10 TD (15:18)
[2016-11-30] MEDS ORDERED: Naproxen PO (15:18)
[2016-11-30] MEDS ORDERED: Baclofen PO (15:18)
[2016-11-30] MEDS ORDERED: METH28OI2 TOP (15:18)
[2016-11-30] MEDS ORDERED: PROP20TA22 PO (15:18)
[2016-11-30] MEDS ORDERED: Docusate Sodium PO (15:18)
[2016-11-30] MEDS: METHOCARBAMOL 750 MG TABLET PO PRN (16:59)
--- NOTE | 2016-11-30 16:59 | NUR ---
Paloma marsh: pt verbalized she was in pain on her legs and feet. pain scale 7/10.
--- NOTE | 2016-11-30 18:01 | NUR ---
PRN REASSESSMENT: robaxin was effective pain scale 3/10 pt was able to join clients downstairs for dinner
[2016-11-30 18:17] VITALS: BP 114/68
[2016-11-30 18:22] LABS: *AMPHETAMINE, URINE NEGATIVE (NEGATIVE); *BARBITURATE, URINE NEGATIVE (NEGATIVE); *CANNABINOID, URINE POSITIVE (NEGATIVE); *COCCAINE, URINE NEGATIVE (NEGATIVE); *OPIATE, URINE NEGATIVE (NEGATIVE); *PHENCYCLIDINE SCREEN,URINE NEGATIVE (NEGATIVE)
--- NOTE | 2016-11-30 19:04 | NUR ---
end of shift note: pt is in stable condition. pt has hx of chronic pain, and states medications are only effective for a short while. pt is admitted to [facility] for opiate/benzo withdrawal/dependence. pts last cows is 7 and last ciwa 4. pt states she is ready to go to treatment for the next step. pt tolerated taper medications. pt at times is very liable. will endorse pt to student assistant.
--- NOTE | 2016-11-30 19:15 | NUR ---
Start of Shift Note: Patient is a 46 y/o male admitted on 11/25/16 for Opiate & Benzo dependence. Patient reported with medical history of Hypothyroidism, Fibromyalgia, Complex Regional Pain Syndrome, Chronic Fatigue Syndrome, Arthritis, Anxiety, Surgery of Right foot, & Scoliosis. Patient is on a regular diet with no known food and drug allergies. Patient is DNR status. Fall precaution noted. Skin intact Patient completed her Valium and Subutex taper and she is scheduled to be discharge tomorrow. Urine drug screen collected and resulted. Last COWS is 7 CIWA 4 noted. Patient was given PRN Toradol & Robaxin during day shift. Patient is alert & oriented x4. No shortness of breath noted. Respiration even & unlabored. Abdomen soft & non-distended. No nausea/vomiting noted. Patient complains of 8/10 back pain. No headache noted. Patient denies chills & sweating. No hallucinations. No bilateral hand tremors noted. Patient denies SI/HI. Safety precautions are in place. Bed locked in lowest position. Both side rails up. Call light within pts reach. Will continue to monitor patient.
[2016-11-30 20:00] VITALS: BP 127/79
[2016-11-30] MEDS: TRAZODONE 100 MG TABLET PO PRN (22:16)
--- NOTE | 2016-11-30 22:16 | NUR ---
PRN Trazodone Patient requesting for medication to help her sleep. PRN Trazodone given as ordered. Will continue to monitor patient.
[2016-12-01] VITALS: BP 118/75
--- NOTE | 2016-12-01 | NUR ---
PRN Reassessment Patient asleep in bed and appears comfortable. No s/s of distress noted. Safety precautions are in place. Will continue to monitor.
[2016-12-01] MEDS: LEVOTHYROXINE SODIUM 75 MCG TABLET PO SCH (06:54)
--- NOTE | 2016-12-01 07:30 | NUR ---
Start of Shift Note: Patient is a 46 y/o male admitted on 11/25/16 for Opiate & Benzo dependence. Patient reported with medical history of Hypothyroidism, Fibromyalgia, Complex Regional Pain Syndrome, Chronic Fatigue Syndrome, Arthritis, Anxiety, Surgery of Right foot, & Scoliosis. Patient is on a regular diet with no known food and drug allergies. Patient is DNR status. Fall precaution noted. Skin intact Patient completed her Valium and Subutex taper and she is scheduled to be discharge today. Urine drug screen collected and resulted. Last COWS is 3 CIWA 2 noted. Patient was given PRN trazodone during my shfit. Pt had un uneventful night. Pt remained stable and vitals remains WNL. Pt slept for a total of 6 hours. Pt consumed 1000ml of fluids and voided 3x with no bowel movement. All needs attended & met. Safety precautions are in place. Will endorse pt to day shift nurse. Addendum: 12/01/16 at 0748 by FANG WINTER RN End of shift Note not start of shift
--- NOTE | 2016-12-01 07:45 | NUR ---
Start of Shift Note: Client is A/Ox4, she presents with anxious mood, flat affect. She stated "I had difficulty sleeping and feel very tired." Client completed Valium and Subutex taper. Admitted for Opiate & Benzodiazepine withdrawal. Past medical history of Hypothyroidism, Fibromyalgia, Complex Regional Pain Syndrome, Chronic Fatigue Syndrome, Arthritis, Anxiety, Scoliosis. Past surgical hx: Surgery of Right foot. Regular diet, NKA. Client is DNR status. Last COWS 3/ CIWA 2. PRN trazodone for inability to sleep, she slept 6 hrs. All needs attended & met. Safety precautions are in place. Will continue to monitor.
[2016-12-01 08:45] VITALS: BP 116/68
[2016-12-01] MEDS: GABAPENTIN 300 MG CAPSULE PO SCH (09:08)
[2016-12-01] MEDS: FAMOTIDINE 20 MG TABLET PO SCH (09:08)
[2016-12-01] MEDS: BACLOFEN 10 MG TABLET PO SCH (09:08)
[2016-12-01 09:09] VITALS: BP 116/68
[2016-12-01] MEDS: NAPROXEN 500 MG TABLET PO SCH (09:09)
[2016-12-01] MEDS: ACETAMINOPHEN 325 MG TABLET PO SCH (09:09)
[2016-12-01] MEDS: DICYCLOMINE HCL 20 MG TABLET PO SCH (09:09)
[2016-12-01] MEDS: LIDOCAINE 5% PATCH TD SCH (09:09)
[2016-12-01] MEDS: MULTIVITAMINS,THERAPEUTIC TABLET PO SCH (09:09)
[2016-12-01] MEDS: DOCUSATE SODIUM 250 MG CAPSULE PO SCH (09:09)
[2016-12-01] MEDS: PROPRANOLOL HCL 20 MG TABLET PO SCH (09:09)
--- NOTE | 2016-12-01 09:57 | NUR ---
DISCHARGE NOTE Pt was admitted for opioids and benzodiazepine withdrawal. Last CIWA . Client denies any N/V/D or MORLEY. Client denies any SI/HI ideation. Vital signs stable. Client states that she feels ready for discharge. Client's medications, discharge instructions and valuables secures in duffle bag and then given to SENIOR DESIGN ENGINEERING SPECIALIST. All belongings returned to client. Client verbalized her discharge instructions. Client ID band removed, she ambulated off of the unit. Client left via [facility] to [facility] in stable condition.
[2016-12-04 06:06] LABS: *BENZODIAZEPINES Positive (.); *CANNABINOID (THC) Positive (.); *CODEINE Negative (Cutoff=300); *HYDROMORPHONE Positive (.); *NORDIAZEPAM Negative (Cutoff=300); *OPIATES Positive ng/mL (Cutoff=300); *OXAZEPAM Negative (Cutoff=300)
== END 2016-12-01 09:57 | disposition other institution (70) | DRG 895 ==
LOC: SRC 01:26
PROVIDERS: ADMIT Internal Medicine; ATTEND Internal Medicine
PROC: HZ2ZZZZ Detoxification Services for Substance Abuse Treatment (ICD-10-PCS; principal; 2016-11-25)
PROC: HZ41ZZZ Group Counseling for Substance Abuse Treatment, Behavioral (ICD-10-PCS; 2016-11-26)
PROC: HZ31ZZZ Individual Counseling for Substance Abuse Treatment, Behavioral (ICD-10-PCS; 2016-11-27)
DX: F11.23 Opioid dependence with withdrawal (principal); F33.1 Major depressive disorder, recurrent, moderate; G90.50 Complex regional pain syndrome I, unspecified; F13.230 Sedative, hypnotic or anxiolytic dependence with withdrawal, uncomplicated; M79.7 Fibromyalgia; G43.909 Migraine, unspecified, not intractable, without status migrainosus; Z91.5 Personal history of self-harm; Z81.8 Family history of other mental and behavioral disorders; E66.9 Obesity, unspecified; Z68.36 Body mass index [BMI] 36.0-36.9, adult; G89.4 Chronic pain syndrome; M54.40 Lumbago with sciatica, unspecified side; F41.9 Anxiety disorder, unspecified; M19.90 Unspecified osteoarthritis, unspecified site; G47.00 Insomnia, unspecified; F17.200 Nicotine dependence, unspecified, uncomplicated; E03.9 Hypothyroidism, unspecified; F15.21 Other stimulant dependence, in remission; K59.03 Drug induced constipation; F12.90 Cannabis use, unspecified, uncomplicated
CPT/HCPCS: 36415; 70030-TC; 80307; 80346; 80349; 80361; 83690; 83735; 84443; 84703; 85025; 86580; 86705; 87340; 87806; G6040-TC; J1885